=== PATIENT | male | born 1990 ===

== ENCOUNTER 2020-11-29 21:17 | Emergency (ER) | payer OTHER ==
[~2020-11-29 21:17] MED LIST: AMPDEX10CR; HYDACE10B PO; HYDACE5 PO
== END 2020-11-29 22:11 | disposition left against medical advice (07) ==
LOC: ER 21:17
DX: Z53.21 Procedure and treatment not carried out due to patient leaving prior to being seen by health care provider (principal)

== ENCOUNTER 2020-12-07 21:53 | Emergency (ER) | payer OTHER ==
[~2020-12-07] VITALS: Ht 167.6 cm; Wt 81.7 kg
== END 2020-12-07 22:27 | disposition left against medical advice (07) ==
LOC: ER 21:53
DX: R55 Syncope and collapse (principal)
CPT/HCPCS: 99283